=== PATIENT | female | born 1960 | race African-American/Black ===

== ENCOUNTER → 2016-12-28 | Outpatient (CLI) | payer MEDICARE, MEDICAID ==
[~2016-12-28] MED LIST: LEVO125T PO; VIC PO
== END | disposition home or self-care (01) ==
LOC: RAD 13:12
PROVIDERS: ATTEND Podiatrist Foot & Ankle Surgery
DX: M20.11 Hallux valgus (acquired), right foot (principal)
CPT/HCPCS: 73630